=== PATIENT | female | born 1945 | race Caucasian/White ===

== ENCOUNTER → 2017-06-12 | Outpatient (CLI) | payer MEDICARE ==
--- NOTE | 2017-06-12 13:37 | BD ---
EXAMINATION TYPE: MG DEXA axial skeleton. DATE OF EXAM: 06/12/2017 COMPARISON: NONE CLINICAL HISTORY: Postmenopausal female. Height: 61.2 IN Weight: 190 LBS FRAX RISK QUESTIONS: Alcohol (3 or more units per day): NO Family History (Parent hip fracture): NO Glucocorticoids (More than 3mos): NO (Ex: prednisone, prednisolone, methylprednisolone, dexamethasone, and hydrocortisone). History of Fracture in Adulthood: NO Secondary Osteoporosis: 1. Type 1 Diabetes: NO 2. Hyperthyroidism: NO 3. Menopause before 45: YES AGE 39 4. Malnutrition: NO 5. Chronic liver disease: NO Rheumatoid Arthritis: NO Current Tobacco Use: NO RISK FACTORS HISTORY OF: Family History of Osteoporosis: YES MOTHER/GRANDMOTHER Active: YES Postmenopausal woman: AGE 39 MEDICATIONS: Additional Medications: VIT D, BLOOD PRESSURE MEDS, LOSARTAN, EXAM MEASUREMENTS: Bone mineral densitometry was performed using the [employer] System. Bone mineral density as measured about the Lumbar spine is: ----- L1-L4(G/cm2): 1.288 T Score Values are as follows: ----- L2: 0.1 ----- L3: 1.1 ----- L4: 2.2 ----- L1-L4: 0.9 Bone mineral density BASELINE Bone mineral density about the R hip (g/cm2): 0.941 Bone mineral density about the L hip (g/cm2): 0.939 T Score values are as follows: -----R Neck: -0.7 -----L Neck: -0.7 -----R Total: 0.7 -----L Total: 0.3 Bone mineral density BASELINE IMPRESSION: Normal (Values between +1 and -1 indicate normal bone mass). Consider repeating this study in 5 year s or sooner if there is some new clinical indication. NOTE: T-SCORE=SD OF THE YOUNG ADULT MEAN.
== END | disposition home or self-care (01) ==
LOC: RADBDWWP 12:26
PROVIDERS: ATTEND Family Medicine
DX: M85.80 Other specified disorders of bone density and structure, unspecified site (principal)
CPT/HCPCS: 77080

== ENCOUNTER → 2018-05-02 | Outpatient (CLI) | payer MEDICARE ==
--- NOTE | 2018-05-02 11:11 | ECHOF ---
Referral Reason:HTN I10 MEASUREMENTS -------- HEIGHT: 160.0 cm WEIGHT: 84.8 kg BP: RVIDd: 2.7 cm (< 3.3) IVSd: 1.1 cm (0.6 - 1.1) LVIDd: 3.3 cm (3.9 - 5.3) LVPWd: 1.0 cm (0.6 - 1.1) IVSs: 1.4 cm LVIDs: 2.1 cm LVPWs: 1.4 cm LAESV Index (A-L): 25.89 ml/m Ao Diam: 2.7 cm (2.0 - 3.7) AV Cusp: 1.9 cm (1.5 - 2.6) LA Diam: 2.4 cm (2.7 - 3.8) MV E Chris: 0.94 m/s MV DecT: 292 ms MV A Chris: 1.25 m/s MV E/A Ratio: 0.75 AV maxP.25 mmHg AV meanP.93 mmHg RAP: 5.00 mmHg RVSP: 17.14 mmHg FINDINGS -------- Sinus rhythm. This was a technically adequate study. The left ventricular size is normal. There is borderline concentric left ventricular hypertrophy. Overall left ventricular systolic function is normal with, an EF between 55 - 60 %. The right ventricle is normal in size and function. Normal LA size by volume 22+/-6 ml/m2. The right atrium is normal in size. There is mild aortic valve sclerosis. There is no evidence of aortic regurgitation. There is no e vidence of aortic stenosis. The mitral valve leaflets are mildly thickened. There is trace to mild mitral regurgitation. Trace tricuspid regurgitation present. Right ventricular systolic pressure is normal at < 35 mmHg. There is no evidence of pulmonary hypertension. Trace/mild (physiologic) pulmonic regurgitation. The aortic root size is normal. Normal inferior vena cava with normal inspiratory collapse consistent with estimated right atrial pre ssure of 5 mmHg. There is no pericardial effusion. CONCLUSIONS -------- 1. Sinus rhythm. 2. This was a technically adequate study. 3. The left ventricular size is normal. 4. There is borderline concentric left ventricular hypertrophy. 5. Overall left ventricular systolic function is normal with, an EF between 55 - 60 %. 6. Normal LA size by volume 22+/-6 ml/m2. 7. There is mild aortic valve sclerosis. 8. The mitral valve leaflets are mildly thickened. 9. There is trace to mild mitral regurgitation. 10. Trace tricuspid regurgitation present. 11. Right ventricular systolic pressure is normal at < 35 mmHg. 12. There is no evidence of pulmonary hypertension. 13. Trace/mild (physiologic) pulmonic regurgitation. 14. The aortic root size is normal. 15. There is no pericardial effusion. DIRECTOR OF RECRUITMENT AND ADMISSIONS: Truman Valle RDCS
== END | disposition home or self-care (01) ==
LOC: RADECHMAIN 08:16
PROVIDERS: ATTEND Family Medicine
DX: I08.0 Rheumatic disorders of both mitral and aortic valves (principal)
CPT/HCPCS: 93306

== ENCOUNTER → 2019-10-15 | Outpatient (CLI) | payer MEDICARE ==
--- NOTE | 2019-10-15 09:57 | BD ---
EXAMINATION TYPE: Axial Bone Density DATE OF EXAM: 10/15/2019 COMPARISON: 2017 CLINICAL HISTORY: M [age] Height: 61.75 inches Weight: 188 pounds FRAX RISK QUESTIONS: Alcohol (3 or more units per day): no Family History (Parent hip fracture): no Glucocorticoids (More than 3mos): no (Ex: prednisone, prednisolone, methylprednisolone, dexamethasone, and hydrocortisone). History of Fracture in Adulthood: no Secondary Osteoporosis: 1. Type 1 Diabetes: no 2. Hyperthyroidism: no 3. Menopause before 45: yes 4. Malnutrition: no 5. Chronic liver disease: no Rheumatoid Arthritis: no Current Tobacco Use: no RISK FACTORS HISTORY OF: Family History of Osteoporosis: yes; mother & grandmother Active: yes Diet low in dairy products/other sources of calcium: at least one serving a day Postmenopausal woman: yes Take estrogen and/or progesterone medications: no Lost more than 2 inches in height since high school: no Frequent falls: no Poor Health: no Hyperparathyroidism: no Adrenal Insufficiency: no MEDICATIONS: Prednisone or other steroids: no Thyroid Medications: no Osteoporosis Medications: no Additional Medications: calcium ; blood pressure med Additional History: EXAM MEASUREMENTS: Bone mineral densitometry was performed using the [employer] System. Bone mineral density as measured about the Lumbar spine is: ----- L1-L4(G/cm2): 1.308 T Score Values are as follows: ----- L2: 0.2 ----- L3: 1.2 ----- L4: 2.9 ----- L1-L4: 1.1 Bone mineral density has: Increased 2.8% since study of: 06/12/2017 Bone mineral density about the R hip (g/cm2): 0.940 Bone mineral density about the L hip (g/cm2): 0.920 T Score values are as follows: -----R Neck: -0.7 -----L Neck: -0.9 -----R Total: 0.7 -----L Total: 0.3 Bone mineral density has: Decreased -0.3% since study of: 06/12/2017 IMPRESSION: Normal (Values between +1 and -1 indicate normal bone mass). Consider repeating this study in 5 year s or sooner if there is some new clinical indication. NOTE: T-SCORE=SD OF THE YOUNG ADULT MEAN.
== END | disposition home or self-care (01) ==
LOC: RADBDWWP 09:06
PROVIDERS: ATTEND Family Medicine
DX: M85.80 Other specified disorders of bone density and structure, unspecified site (principal)
CPT/HCPCS: 77080

== ENCOUNTER → 2021-02-26 | Outpatient (CLI) | payer MEDICARE ==
--- NOTE | 2021-02-27 15:48 | ECHOF ---
Referral Reason:Heart Murmur R01.1 MEASUREMENTS -------- HEIGHT: 160.0 cm WEIGHT: 90.7 kg BP: IVSd: 1.0 cm (0.6 - 1.1) LVIDd: 3.7 cm (3.9 - 5.3) LVPWd: 1.4 cm (0.6 - 1.1) EDV(Teich): 57 ml IVSs: 1.5 cm LVIDs: 2.1 cm LVPWs: 1.7 cm %IVS Thck: 56 % ESV(Teich): 15 ml EF(Teich): 74 % %FS: 42 % SV(Teich): 42 ml RVIDd: 2.4 cm (< 3.3) IVC: 16.67 mm LALs A4C: 4.7 cm LAAs A4C: 13.6 cm LAESV A-L A4C: 33 ml LAESV MOD A4C: 31 ml LALs A2C: 5.1 cm LAAs A2C: 12.4 cm LAESV A-L A2C: 25 ml LAESV MOD A2C: 24 ml LAESV(A-L): 30 ml LAESV Index (A-L): 15.70 ml/m Ao Diam: 2.7 cm (2.0 - 3.7) LA Diam: 3.0 cm (2.7 - 3.8) AV Cusp: 1.8 cm (1.5 - 2.6) EPSS: 0.3 cm MV E Chris: 0.86 m/s MV DecT: 222 ms MV Dec Menard: 3.9 m/s MV A Chris: 1.06 m/s MV E/A Ratio: 0.81 MV PHT: 64 ms MR Vmax: 1.68 m/s MR maxP.27 mmHg AV Vmax: 1.70 m/s AV maxP.53 mmHg AV Vmax: 1.72 m/s AV Vmean: 1.24 m/s AV maxP.89 mmHg AV meanP.89 mmHg AV Env.Ti: 286 ms AV VTI: 35.4 cm PV Vmax: 1.34 m/s PV maxP.23 mmHg DC Vmax: 1.66 m/s DC maxP.00 mmHg DC PHT: 509 ms DC DecT: 1757 ms DC Dec Menard: 0.9 m/s TR Vmax: 1.78 m/s TR maxP.74 mmHg RAP: 5.00 mmHg RVSP: 17.74 mmHg MV EF SLOPE: 71.96 mm/s (70 - 150) MV EXCURSION: 12.15 mm (> 18.000) FINDINGS -------- This was a technically adequate study. The left ventricular size is normal. There is mild concentric left ventricular hypertrophy. Overa ll left ventricular systolic function is normal with, an EF between 55 - 60 %. The diastolic fillin g pattern is normal for the age of the patient 10.59. The right ventricle is normal in size. The left atrial size is normal. Normal LA size by volume 22+/-6 ml/m2. The right atrial size is normal. Aortic valve is trileaflet and is mildly thickened. The mitral valve is normal. There is trace mitral regurgitation. The tricuspid valve appears structurally normal. Trace tricuspid regurgitation present. Right mahsa tricular systolic pressure is normal at < 35 mmHg. The pulmonic valve was not well visualized. Trace/mild (physiologic) pulmonic regurgitation. The aortic root size is normal. Normal inferior vena cava with normal inspiratory collapse consistent with estimated right atrial pre ssure of 5 mmHg. There is no pericardial effusion. CONCLUSIONS -------- 1. The left ventricular size is normal. 2. There is mild concentric left ventricular hypertrophy. 3. Overall left ventricular systolic function is normal with, an EF between 55 - 60 %. 4. The diastolic filling pattern is normal for the age of the patient 10.59 5. There is trace mitral regurgitation. 6. Trace tricuspid regurgitation present. 7. Trace/mild (physiologic) pulmonic regurgitation. 8. There is no pericardial effusion. AUXILIARY EQUIPMENT OPERATOR: Anju Gil, [facility]
== END | disposition home or self-care (01) ==
LOC: RADECHMAIN 13:00
PROVIDERS: ATTEND Family Medicine
DX: I08.8 Other rheumatic multiple valve diseases (principal)
CPT/HCPCS: 93306

== ENCOUNTER → 2024-12-11 | Outpatient (CLI) | payer MEDICARE ==
--- NOTE | 2024-12-11 14:00 | BD ---
EXAMINATION TYPE: Axial Bone Density DATE OF EXAM: 12/11/2024 CLINICAL HISTORY: 79 years old Female. ICD-10 CODE: M85.80 OTH DISRD OF BONE DENSITY AND STRUCTURE , Additional History: Height: 61 Weight: 194 FRAX RISK QUESTIONS: Family History (Parent hip fracture): no History of Fracture in Adulthood: no Secondary Osteoporosis: yes 3. Menopause before 45: 39 RISK FACTORS HISTORY OF: Surgery to Spine/Hip(right/left)/Wrist (right/left): no MEDICATIONS: Thyroid Medications: no Osteoporosis Medications: no EXAM MEASUREMENTS: Bone mineral densitometry was performed using the [employer] System. Bone mineral density as measured about the Lumbar spine is: ----- L1-L4(G/cm2): 1.522 T Score Values are as follows: ----- L1: -0.4 ----- L2: 0.4 ----- L3: 3.1 ----- L4: 7.2 ----- L1-L4: 2.9 Z Score Values are as follows: ----- L1: 0.7 ----- L2: 1.5 ----- L3: 4.1 ----- L4: 8.2 ----- L1-L4: 3.9 Bone mineral density has: Increased 33.4% since study of: 10/15/2019 Bone mineral density about the R hip (g/cm2): 1.064 Bone mineral density about the L hip (g/cm2): 1.012 T Score values are as follows: -----R Neck: -1.4 -----L Neck: -1.3 -----R Total: 0.4 -----L Total: 0.0 Z Score values are as follows: -----R Neck: 0.3 -----L Neck: 0.3 -----R Total: 1.9 -----L Total: 1.5 Bone mineral density has: Decreased -3.1% since study of: 10/15/2019 FRAX%s: The graph provided illustrates a 11.9% chance for a major osteoporotic fx and a 2.5% chance f or the hips probability for fx in 10 years time. IMPRESSION: Normal (Values between +1 and -1 indicate normal bone mass). Consider repeating this study in 5 year s or sooner if there is some new clinical indication. NOTE: T-SCORE=SD OF THE YOUNG ADULT MEAN. [facility], , 12/11/2024 1:57 PM
== END | disposition home or self-care (01) ==
LOC: RADBDWWP 12:44
PROVIDERS: ATTEND Family Medicine
DX: M85.89 Other specified disorders of bone density and structure, multiple sites (principal)
CPT/HCPCS: 77080